=== PATIENT | female | born 1990 | race Caucasian/White ===

== ENCOUNTER 2017-11-11 15:34 | Emergency (ER) | payer OTHER ==
[~2017-11-11] VITALS: Ht 170.2 cm; Wt 92.5 kg
[2017-11-11 16:22] VITALS: Ht 170.2 cm; Wt 92.5 kg
[2017-11-11 17:05] LABS: BASOPHIL % 0.4 % (0-2); PLATELET COUNT 325 x10^3mcL (130-400); RED CELL DISTRIBUTION WIDTH 13.7 % (11.5-14.5)
[2017-11-11 17:09] LABS: microscopic required? YES; urine erythrocyte 3+ (NEGATIVE)
[2017-11-11 17:21] LABS: CALCIUM 8.9 mg/dL (8.5-10.1); CARBON DIOXIDE 27.7 mmol/L (21-32); CHLORIDE SERUM 99 mmol/L (98-107); CREATININE SERUM 0.6 mg/dL (0.6-1.0); GFR1 > 60 mL/min; GLUCOSE SERUM 94 mg/dL (74-106); POTASSIUM SERUM 3.4 mmol/L (3.5-5.1); SODIUM SERUM 136 mmol/L (136-145)
[2017-11-11 19:40] VITALS: BP 122/75
== END 2017-11-11 19:40 | disposition home or self-care (01) ==
LOC: ED 15:34
PROVIDERS: Emergency Medicine
DX: O26.891 Other specified pregnancy related conditions, first trimester (principal); R10.9 Unspecified abdominal pain; Z3A.00 Weeks of gestation of pregnancy not specified
CPT/HCPCS: J7030

== ENCOUNTER 2017-11-13 08:50 | Emergency (ER) | payer OTHER ==
[~2017-11-13] VITALS: Ht 170.2 cm; Wt 93.9 kg
[2017-11-13 08:59] VITALS: BP 132/73; Ht 170.2 cm; Wt 93.9 kg
== END 2017-11-13 11:02 | disposition home or self-care (01) ==
LOC: ED 08:50
DX: O03.9 Complete or unspecified spontaneous abortion without complication (principal)